=== PATIENT | male | born 1955 | race Caucasian/White ===

== ENCOUNTER 2020-08-04 08:27 | Outpatient (CLI) | payer MEDICARE, SELFPAY ==
--- NOTE | 2020-08-04 | EST_ITS ---
Patient Info Name: Cam Duarte Age: 65 years : 1955 Gender: Male Ht: 72 in Wt: 220 lbs BSA: 2.27 m2 Exam Date: 08/04/2020 10:15 AM Exam Location: [facility] Stress Patient Status: Outpatient Admit Date: 08/04/2020 Staff Ordering Physician: Miguel Lerma MD Attending Provider: Miguel Lerma MD Exercise Technologist: Tri Chairez RDCS Exam Type: CA stress jeremy w NM Study Info Indications R07.9 - Chest pain, unspecified A regadenoson stress test was performed. Summary 1. Please correlate with nuclear medicine images, reported separately. 2. Baseline EKG showed sinus bradycardia, first-degree AV block, right bundle-branch block, left anterior fascicular block. After regadenoson injection, there were nonspecific ST changes which did not meet the criteria for ischemia. Frequent PVCs were noted. MPI is pending. Protocol: Lexiscan Stress ECG Details Stage: REST Duration (min): 1 min : 45 sec HR (bpm): 74 SBP (mmHg): 149 DBP (mmHg): 81 Stage: REST Duration (min): 4 min : 5 sec HR (bpm): 75 SBP (mmHg): 149 DBP (mmHg): 81 Stage: STAGE 1 Duration (min): 0 min : 59 sec HR (bpm): 87 SBP (mmHg): 150 DBP (mmHg): 78 Stage: RECOVERY Duration (min): 1 min : 0 sec HR (bpm): 100 SBP (mmHg): 165 DBP (mmHg): 72 Stage: RECOVERY Duration (min): 2 min : 0 sec HR (bpm): 95 SBP (mmHg): 165 DBP (mmHg): 72 Stage: RECOVERY Duration (min): 3 min : 0 sec HR (bpm): 87 SBP (mmHg): 154 DBP (mmHg): 67 Stage: RECOVERY Duration (min): 3 min : 24 sec HR (bpm): 88 SBP (mmHg): 154 DBP (mmHg): 67 Rest HR: 75 bpm Peak HR: 101 bpm Rest Sys BP: 149 mmHg Peak Sys BP: 165 mmHg Max Pred HR: 153 bpm % Max Pred HR: 66 % Target HR: 130 bpm Max RPP: 16,665 bpm*mmHg Total Time: 1 min : 0 sec Rest Mae BP: 81 mmHg Peak Mae BP: 72 mmHg Total Dose: 0.4 mg Report Signatures
--- NOTE | ~2020-08-04 | NM_ITS ---
EXAMINATION: NM jeremy stress w perfusion DATE: 08/04/2020 11:46 INDICATION: Chest pain TECHNIQUE: Rest images were obtained following intravenous administration of 10.5 mCi Tc99m tetrofosm in (Myoview). The patient was infused intravenously with Lexiscan (Regadenoson). Then, 30 mCi Tc99m t etrofosmin (Myoview) was administered intravenously, and stress images were obtained. Data was recons tructed into short axis and horizontal and vertical long axis SPECT images. Gated SPECT images were a lso obtained. COMPARISON: None. FINDINGS: There is no definite reversible or fixed perfusion abnormality to suggest ischemia or infar ction. There is normal left ventricular chamber size, wall motion and ejection fraction. Left ventr icular ejection fraction measures >70%. IMPRESSION: 1. Normal myocardial perfusion at rest and during stress. 2. Left ventricular ejection fraction measuring >70%. Reviewed, dictated and finalized at location A.
== END 2020-08-04 08:28 | disposition home or self-care (01) ==
LOC: ANHCARD 08:34
PROVIDERS: PCP Family Medicine; Visit Provider Family Medicine
DX: R00.1 Bradycardia, unspecified (principal); I45.10 Unspecified right bundle-branch block; I44.0 Atrioventricular block, first degree; I44.4 Left anterior fascicular block
CPT/HCPCS: 78452; 93017; A9502; J2785

== ENCOUNTER 2020-09-15 00:21 | Outpatient (CLI) | payer MEDICARE, SELFPAY ==
[2020-09-15 19:24] LABS: SARS-CoV-2 RNA PCR Negative
== END 2020-09-15 00:22 | disposition home or self-care (01) ==
LOC: ANHCOVIDDT 00:22
PROVIDERS: PCP Family Medicine; Visit Provider Internal Medicine Gastroenterology
DX: Z01.812 Encounter for preprocedural laboratory examination (principal)
CPT/HCPCS: 87635; C9803; U0003

== ENCOUNTER 2020-09-18 01:21 | Day surgery (SDC) | payer MEDICARE, SELFPAY ==
[2020-09-11 14:10] VITALS: BMI 30.4
[2020-09-18 08:24] VITALS: BP 144/77; PULSE 61; RESP 18; TEMP 36.3; O2SAT 98; BMI 28.8
[2020-09-18] MEDS: LACTATED RINGERS 1,000 ML 150 ML IV CONT (08:40)
--- NOTE | 2020-09-18 09:04 | WPDANESEPPF ---
Anes - Initial Pre Proc Eval Procedure: Operation Date: 09/18/20 09:45 Proposed Procedures p Screening Colonoscopy - Heber Liu MD Date/Time: 09/18/20 09:04 Surgeon: Heber Liu MD Pre Op Diagnosis: Neoplasm Screening Patient Data Age: 65 Gender: M Height: 6 ft Weight: 96.5 kg Last Vital Signs Temp 97.4 F L 09/18/20 08:24 Pulse 61 09/18/20 08:24 Resp 18 09/18/20 08:24 BP 144/77 H 09/18/20 08:24 Pulse Ox 98 09/18/20 08:24 Allergies Allergy/AdvReac Type Severity Reaction Status Date / Time No Known Allergies Allergy Verified 09/18/20 08:23 Home Medications Medication Instructions Recorded Confirmed Type esomeprazole magnesium 40 mg 40 mg PO DAILY #90 cap 06/26/20 09/11/20 Rx capsule,delayed release amlodipine 10 mg tablet 10 mg PO DAILY 07/11/20 09/11/20 History azilsartan medoxomil 40 1 tablet PO DAILY 07/11/20 09/11/20 History mg-chlorthalidone 12.5 mg tablet carvedilol 25 mg tablet 25 mg PO Q12H 07/11/20 09/11/20 History hydralazine 50 mg tablet 50 mg PO BID tablet 07/11/20 09/11/20 History peg 3350-electrolytes 236 240 ml PO Q10M #4000 ml 08/30/20 Rx gram-22.74 gram-6.74 gram-5.86 gram solution Patient hx anesthesia problems: none Family hx anesthesia problems: none PMFSH Past Medical History Medical History (Updated 07/11/20 @ 09:08 by Miguel Lerma MD) Chest pain Screen for colon cancer Screening for prostate cancer Screening, lipid Family History Family History Other Diabetes mellitus Family history of coronary artery disease Hypertension Social History Social History Smoking status: Never smoker Smoking end date: 10/27/72 Alcohol intake: current Drinks per week: 12 Substance use: never Substance use type: does not use Living arrangements: with family Spiritual care concerns: No Anes - Eval Final PreProcedure Day of Procedure 09/18/20 09:04 Patient weight: normal Heart: regular rate and rhythm Lungs: clear to auscultation Airway: Mallampati scale class II Neurological: alert and oriented Last oral intake: >/= 8 hours ASA classification: III Emergent: no Anesthetic plan: proceed Anesthesia type and monitoring: general GIVS and standard monitoring Informed Consent: The patient's anesthetic plan and its attendant risks and benefits were discussed with the patient/family/POA. Questions were solicited and answers provided to the satisfaction of the patient/family/POA.
--- NOTE | 2020-09-18 09:10 | PM.HPGS ---
History of Present Illness History of Present Illness Consent: Risks, benefits, and alternatives have been discussed and questions answered. Patient agrees to proceed with procedure. Chief complaint: Neoplasm Screening Narrative: Cam Duarte is a 65 year old male with last colonoscopy ~ 10 years ago. Review of Systems Constitutional: Constitutional: Denies headache(s) and Denies weakness Eyes: Eyes: Denies blurry vision ENT: Reports Normal hearing present, Denies headache(s) and Denies neck pain Cardiovascular: Cardiovascular: Denies chest pain and Denies dyspnea Respiratory: Respiratory: Denies dyspnea Gastrointestinal: Gastrointestinal: Reports no additional gastrointestinal complaints Genitourinary: Genitourinary: Denies dysuria Musculoskeletal: Musculoskeletal: Denies neck pain Integumentary/Breasts: Skin/Breast: Denies dry skin Neurologic: Reports Normal hearing present, Denies headache(s) and Denies weakness Psychiatric: Psychiatric: Denies anxiety Endocrine: Endocrine: Denies change in body appearance Hematologic/Lymphatic: Hematologic/Lymphatic: Denies easy bleeding Allergic/Immunologic: Allergic/Immunologic: Denies urticaria PMFSH Past Medical History Medical History (Updated 07/11/20 @ 09:08 by Miguel Lerma MD) Chest pain Screen for colon cancer Screening for prostate cancer Screening, lipid Family History Family History Other Diabetes mellitus Family history of coronary artery disease Hypertension Social History Social History Smoking status: Never smoker Smoking end date: 10/27/72 Alcohol intake: current Drinks per week: 12 Substance use: never Substance use type: does not use Living arrangements: with family Spiritual care concerns: No Meds Home Medications and Allergies Home Medications Medication Instructions Recorded Confirmed Type esomeprazole magnesium 40 mg 40 mg PO DAILY #90 cap 06/26/20 09/11/20 Rx capsule,delayed release amlodipine 10 mg tablet 10 mg PO DAILY 07/11/20 09/11/20 History azilsartan medoxomil 40 1 tablet PO DAILY 07/11/20 09/11/20 History mg-chlorthalidone 12.5 mg tablet carvedilol 25 mg tablet 25 mg PO Q12H 07/11/20 09/11/20 History hydralazine 50 mg tablet 50 mg PO BID tablet 07/11/20 09/11/20 History peg 3350-electrolytes 236 240 ml PO Q10M #4000 ml 08/30/20 Rx gram-22.74 gram-6.74 gram-5.86 gram solution Allergies Allergy/AdvReac Type Severity Reaction Status Date / Time No Known Allergies Allergy Verified 09/18/20 08:23 Vital Signs Vital Signs - 24 hr 09/18/20 08:24 Temperature 97.4 F L Pulse Rate 61 Respiratory Rate 18 Blood Pressure 144/77 H Pulse Oximetry 98 Exam Const: General: comfortable and no acute distress HENMT: General nose exam: Normal nares present Eyes: General: appearance normal, both eyes and all related structures Neck: Neck: no JVD Resp: Auscultation: clear to auscultation bilaterally Cardio: Rate: regular rate Rhythm: regular rhythm GI: Inspection: non-distended GI Palp: Yes Soft to palpation Skin: General skin exam: normal color Neuro: General: gait normal Speech: normal speech Extrem: General: normal to inspection Psych: Mental Status: mental status grossly normal Assessment and Plan Assessment and plan (1) Screen for colon cancer: Code(s): Z12.11 - Encounter for screening for malignant neoplasm of colon Status: Acute Assessment and Plan: will proceed with colonoscopy
[2020-09-18 09:52] VITALS: BP 123/67; PULSE 56; RESP 22; O2SAT 98
[2020-09-18 10:02] VITALS: BP 146/79; PULSE 59; RESP 18; O2SAT 99
[2020-09-18 10:12] VITALS: BP 148/77; PULSE 55; RESP 20; O2SAT 100
[2020-09-18 10:22] VITALS: BP 146/78; PULSE 56; RESP 18; O2SAT 100
--- NOTE | 2020-09-18 10:29 | SUR.PHASEII ---
1020: PT'S B/P RUNNING 140/70'S. PT HAS NOT TAKEN B/P MEDS TODAY. DR MENDOZA AWARE. INSTRUCTED TO TAKE WHEN HE GETS HOME. STATES UNDERSTANDING.
== END 2020-09-18 10:31 | disposition home or self-care (01) ==
PROVIDERS: PCP Family Medicine; Visit Provider Internal Medicine Gastroenterology
PROC: 0DJD8ZZ Inspection of Lower Intestinal Tract, Via Natural or Artificial Opening Endoscopic (ICD-10-PCS; CPT 45378; principal; 2020-09-18 09:45)
DX: Z12.11 Encounter for screening for malignant neoplasm of colon (principal); D12.0 Benign neoplasm of cecum; D12.2 Benign neoplasm of ascending colon; D12.4 Benign neoplasm of descending colon; D12.5 Benign neoplasm of sigmoid colon; D12.8 Benign neoplasm of rectum; D12.3 Benign neoplasm of transverse colon; K63.5 Polyp of colon; K57.30 Diverticulosis of large intestine without perforation or abscess without bleeding
CPT/HCPCS: 45385; 88305; J2704; J7120

== ENCOUNTER 2022-02-18 13:10 | Emergency (ER) | payer MEDICARE, SELFPAY ==
--- NOTE | ~2022-02-18 | XR_ITS ---
XR ankle RT min 3V DATE: 02/18/2022 13:52 INDICATION: Rolled right ankle today. Pain and swelling laterally TECHNIQUE: 4 views COMPARISON: None FINDINGS: There is a linear oblique fracture of the distal fibular diametaphysis, with minimal displa cement or angulation. There is moderate overlying soft tissue swelling. The medial malleolus and posterior malleolus appear intact. The ankle mortise is preserved. Mild plantar calcaneal enthesopathy. IMPRESSION: Linear oblique fracture of distal fibular diametaphysis, with overlying soft tissue swell ing Reviewed, dictated and finalized at location A. IMPRESSION: Linear oblique fracture of distal fibular diametaphysis, with overl inna soft tissue swelling
[2022-02-18 13:18] VITALS: BP 157/59; PULSE 60; RESP 16; TEMP 36.6; O2SAT 99
[2022-02-18] MEDS: IBUPROFEN 400 MG TABLET 800 MG PO (16:53)
--- NOTE | 2022-02-18 17:44 | ED.LOWEXIN ---
HPI - Extremity Injury (Lower) General Chief Complaint: Extremity Injury, Lower Stated Complaint: ankle injury Time Seen by Provider: 02/18/22 16:30 History of Present Illness HPI Narrative: Patient is a 67-year-old male with a history of arthritis who presents for right ankle pain and swelling ever since rolling it earlier today. Patient was taking a step when he tripped on a rock, and he landed with his foot in inversion. He did catch himself with his hands outstretched, but denies any pain in his wrists or hands. Denies head injury, loss of consciousness. Reported right ankle pain ever since the injury, and he has been walking with some pain. Denies numbness, tingling, difficulty moving his foot, knee pain, hip pain. Related Data Home Medications Medication Instructions Recorded Confirmed amlodipine 10 mg tablet 10 mg PO DAILY 07/11/20 09/11/20 azilsartan medoxomil 40 1 tablet PO DAILY 07/11/20 09/11/20 mg-chlorthalidone 12.5 mg tablet carvedilol 25 mg tablet 25 mg PO Q12H 07/11/20 09/11/20 hydralazine 50 mg tablet 50 mg PO BID tablet 07/11/20 09/11/20 Allergies Allergy/AdvReac Type Severity Reaction Status Date / Time No Known Allergies Allergy Verified 09/18/20 08:23 Review of Systems Review of Systems: Gen: Denies fevers or chills Eyes: Denies eye pain or visual change ENT: Denies congestion Respiratory: Denies shortness of breath or cough CV: Denies chest pain or palpitations GI: Denies abdominal pain nausea, emesis or diarrhea denies burning, urgency, frequency or hematuria Musculoskeletal: Reports right ankle pain. Denies back pain or muscle pain Neuro: Denies numbness, tingling, weakness or focal weakness Skin: Denies rash Except as documented, all other systems reviewed and negative All systems reviewed & are unremarkable except as noted in HPI and below PMFSH Past Medical History Medical History Chest pain Screen for colon cancer Screening for prostate cancer Screening, lipid Family History Family History Other Diabetes mellitus Family history of coronary artery disease Hypertension Social History Social History Smoking status: Never smoker Smoking end date: 10/27/72 Alcohol intake: current Drinks per week: 12 Substance use: never Substance use type: does not use Spiritual care concerns: No Exam Narrative: APPEARANCE: Well appearing, no pain in distress, well-nourished. Head: normocephalic and atraumatic. EYES: PERRLA/EOMI, conjunctivae clear EARS: External ear normal in appearance NECK: Supple. No adenopathy, no masses. RESPIRATORY: Airway patent, respirations nonlabored. CARDIOVASCULAR: 2+ DP and PT pulses bilaterally. Regular rate and rhythm without murmurs, rubs, or gallops. ABDOMINAL: Normoactive bowel sounds. Soft, nontender, nondistended. No rebound tenderness or guarding. MUSCULOSKELETAL: Moderate amount of swelling over right lateral ankle. Tender over lateral malleolus and distal fibula. No ankle ligamentous laxity. Negative syndesmosis squeeze test. No tenderness palpation along patella or femur, no snuffbox tenderness bilaterally. NEURO: Sensation intact over along entire right lower extremity. Able to move bilateral feet and toes without issue. Normal speech. No focal neurologic deficits. SKIN: Skin is warm and dry. No rashes. PSYCHIATRIC: Normal affect/mood. Course Vital Signs Vital signs: Vital Signs Temperature 97.9 F 02/18/22 13:18 Pulse Rate 60 02/18/22 13:18 Respiratory Rate 16 02/18/22 13:18 Blood Pressure 157/59 H 02/18/22 13:18 Pulse Oximetry 99 02/18/22 13:18 Temperature 97.9 F 02/18/22 13:18 Pulse Rate 60 02/18/22 13:18 Respiratory Rate 16 02/18/22 13:18 Blood Pressure 157/59 H 02/18/22 13:18 Pulse Oximetry 99 02/18/22 13:18 MDM
== END 2022-02-18 17:30 | disposition home or self-care (01) ==
LOC: ANHED 17:06
PROVIDERS: Emergency Provider Emergency Medicine; PCP Hospitalist
DX: S89.391A Other physeal fracture of lower end of right fibula, initial encounter for closed fracture (principal); Z87.891 Personal history of nicotine dependence; X50.9XXA Other and unspecified overexertion or strenuous movements or postures, initial encounter
CPT/HCPCS: 29515; 73610; 99284; A9270